=== PATIENT | male | born 1975 | race Caucasian/White ===

== ENCOUNTER 2017-11-28 05:30 | Day surgery (SDC) | payer OTHER ==
[~2017-11-28 05:30] MED LIST: CLARITIN-D 121 EACH PO; DIOVAN160 M1 PO
[2017-11-28] MEDS ORDERED: PERCOCET 5-3251 EACH PO (09:05)
[2017-11-28] MEDS ORDERED: COLACE100 MG PO (09:05)
== END 2017-11-28 15:15 | disposition home or self-care (01) ==
LOC: CIR.AMB 05:30
DX: K64.4 Residual hemorrhoidal skin tags (principal)